=== PATIENT | female | born 1950 | race Caucasian/White ===

== ENCOUNTER → 2023-07-21 | Outpatient (CLI) | payer MEDICARE | LOC: MC.RAD 10:28 | DX: Z12.31 Encounter for screening mammogram for malignant neoplasm of breast (principal) ==

== ENCOUNTER 2024-03-04 12:21 | Emergency (ER) | payer MEDICARE ==
[~2024-03-04] VITALS: Ht 165.1 cm; Wt 59.1 kg
[2024-03-04 12:31] VITALS: BP 137/88; TEMP 97.4
[2024-03-04] MEDS ORDERED: NORCO 325 MG-51 TAB PO (14:45)
[2024-03-04 14:57] VITALS: PULSE 66
== END 2024-03-04 14:58 | disposition home or self-care (01) ==
LOC: COL.ER 12:21
DX: S52.502A Unspecified fracture of the lower end of left radius, initial encounter for closed fracture (principal); W01.0XXA Fall on same level from slipping, tripping and stumbling without subsequent striking against object, initial encounter; Y93.73 Activity, racquet and hand sports